=== PATIENT | female | born 1995 | race Caucasian/White ===

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

== ENCOUNTER 2017-02-25 21:27 | Inpatient (IN) | payer MEDICAID ==
[~2017-02-25] VITALS: Ht 175.3 cm; Wt 73.0 kg
[~2017-02-25 21:27] MED LIST changes: +METR1TAB76 PO
[2017-02-25 21:50] VITALS: BP 124/76; PULSE 91; RESP 18; TEMP 98.2
--- NOTE | 2017-02-25 21:54 | PD ---
HPI Chief Complaint Cramping/Contractions Date Seen: Feb 25, 2017 Travel History International Travel<30 Days: No Contact w/Intl Traveler<30Days: No History of Present Illness HPI Ms. Flynn is a 21-year-old at 36/3 weeks gestation per first trimester ultrasound presenting to the OB ED with contractions. She states that she can feel contractions every 3-5 minutes for the "last couple of hours." She states that she has been up on her feet all day walking around town prior to presenting to the OB ED. She endorses good movement and denies any vaginal bleeding, discharge, or dysuria. She does have a past medical history of asthma, but has not used her rescue inhaler once during this . Otherwise she has no complaints denies complete review of systems. Weeks Gestation: 36 Para: 1 : 2 History Past Medical History Narrative Medical Asthma Anxiety Obstetric History Obstetric History P1 - at 40 weeks, uncomplicated Past Surgical History Surgical History: No Previous Surgery Family History Family History: Negative Social History Narrative Social History Social: Denies any tobacco abuse, alcohol use, or drug use - past history of trying marijuana but none while being Allergies-Medications (Allergen,Severity, Reaction): Coded Allergies: nitrofurantoin (Unverified Allergy, Intermediate, Rash and throat felt tight, 02/25/17) cephalexin (Unverified Adverse Reaction, Mild, Nausea, vomiting, and diarrhea, 02/25/17) Home Meds Active Scripts Vit W/ Ferrous Fumara Chew (Se-Maxime 19 29-1 mg Chew) 1 Chew, 1 TAB CHEW DAILY for Nutritional Supplement, #90 EA 3 Refills Prov:Spencer Cooper MD, R2 10/06/16 Discontinued Scripts Metronidazole (Metronidazole) 500 Mg Tab, 500 MG PO BID for Infection, #14 TAB 0 Refills Prov:Spencer Cooper MD, R2 02/15/17 Review of Systems Except as stated in HPI: all other systems reviewed are Neg Physical Exam Narrative GENERAL: Well-nourished, well-developed patient in no acute distress. SKIN: Warm and dry. HEAD: Normocephalic and atraumatic. EYES: No scleral icterus. No injection or drainage. ENT: No nasal drainage noted. Mucous membranes pink. Airway patent. NECK: Supple, trachea midline. No JVD. CARDIOVASCULAR: Regular rate and rhythm without murmurs, gallops, or rubs. RESPIRATORY: Breath sounds equal bilaterally. No accessory muscle use. ABDOMEN/GI: Abdomen soft, non-tender, bowel sounds present, no rebound, no guarding Gravid to 36 GENITOURINARY: External Genitalia: intact and normal in appearance Cervix: Posterior Dilatation: 2-3cm Effacement: 50% Station: -3 Membranes: Intact Uterine Contractions: Mild, every 2-3 minutes FHT's: Category: 1 Baseline: 140s Reactive: + Variability: Moderate Decels: None EXTREMITIES: No cyanosis or edema. BACK: Nontender without obvious deformity. No CVA tenderness. NEUROLOGICAL: Awake and alert. Motor and sensory grossly within normal limits. Five out of 5 muscle strength in all muscle groups. Normal speech. Data Data Vital Signs Reviewed: Yes Orders Orders Vital Signs (Adult) .ON ADMISSION (02/25/17 21:33) ^ Labor Status (02/25/17 21:33) ^ Non Stress Test (02/25/17 21:33) ^ Hydration (02/25/17 21:33) MDM Medical Record Reviewed: Yes Plan Ms. Flynn is a 21-year-old at 36/3 weeks gestation per first trimester ultrasound presenting to the OB ED with contractions who is being admitted for possible labor. 1. IUP at 36 weeks gestation -Continue routine antepartum care -Encourage oral hydration, clear liquid diet ordered -FHT category 1, reassuring 2. Admission for possible labor -Admission orders placed -Plan to administer Steroids as patient is <36 weeks -Anticipate , will augment with Pitocin as indicated 3. GBS unknown -Rapid GBS ordered -Penicillin G ordered per protocol until GBS screen has returned 4. Asthma -Patient without use of inhaler during -Albuterol ordered PRN SDW: Dr. Clay, Dr. Farfan -Patient's PCP, Dr. Krunal Cooper, notified. Diagnosis Diagnosis: Primary Impression: 36 weeks gestation of Dave Espinal MD R2 Feb 25, 2017 21:54
[2017-02-25 22:26] LABS: BACTERIA, URINE OCC /hpf; BLOOD, URINE NEG (NEG); GLUCOSE,URINE NEG (NEG); KETONE, URINE NEG (NEG); MUCUS URINE FEW /lpf (OCC); NITRITE,URINE NEG (NEG); PH, URINE 6.5 (5.0-8.5); SQUAMOUS EPITHELIAL CELL URINE 13 /hpf (0-5); TRANSITIONAL EPI CELLS, URINE 1 /hpf; URINE COLOR LIGHT-YELLOW (YELLW/STRAW)
[2017-02-25 22:27] LABS: COMMENT (UR) CULTURE INDICATED; CULTURE IF INDICATED CULTURE INDICATED
[2017-02-25] MEDS ORDERED: LACTATED RINGER'S 1000 ML INJ 500 ML IV ONE (22:45)
[2017-02-25] MEDS ORDERED: LACTATED RINGER'S 1000 ML INJ 1,000 ML IV SCH (22:48)
[2017-02-25] MEDS ORDERED: LACTATED RINGER'S 1000 ML INJ 1,000 ML IV PRN (22:48)
[2017-02-25] MEDS ORDERED: CITRIC ACID-SODIUM CITRATE LIQ 30 ML UDC PO SCH (23:00)
[2017-02-25] MEDS ORDERED: OXYTOCIN 30 UNITS-500ML PREMIX 500 ML IV ONE (23:00)
[2017-02-25] MEDS ORDERED: ONDANSETRON HCL 4 MG/2 ML VIAL IV PUSH PRN (23:00)
[2017-02-25] MEDS ORDERED: LIDOCAINE HCL 1% 50 ML VIAL INFIL PRN (23:00)
[2017-02-25] MEDS ORDERED: SODIUM CHLORID 0.9% 500 ML INJ 500 ML IV PRN (23:00)
[2017-02-25] MEDS ORDERED: BETAMETHASONE SOD PHOS/ACETATE SUSP 30 MG/5 ML VIAL IM ONE (23:00)
[2017-02-25] MEDS ORDERED: LIDOCAINE HCL 1% 50 ML VIAL I-DERMAL PRN (23:00)
[2017-02-25] MEDS ORDERED: MINERAL OIL 10 ML VIAL TOPICAL PRN (23:00)
[2017-02-25] MEDS ORDERED: PENICILLIN G POTASSIUM INJ 5,000,000 UNITS in SODIUM CHLORIDE 0.9% INJ 100 ML IV ONE (23:00)
[2017-02-25] MEDS ORDERED: SODIUM CHLOR 0.9% 1000 ML INJ 1,000 ML IV PRN (23:08)
--- NOTE | 2017-02-25 23:56 | HHI.HP ---
History & Physical H&P HPI Chief Complaint Cramping/Contractions Date Seen: Feb 25, 2017 Travel History International Travel<30 Days: No Contact w/Intl Traveler<30Days: No History of Present Illness HPI Ms. Flynn is a 21-year-old at 36/3 weeks gestation per first trimester ultrasound presenting to the OB ED with contractions. She states that she can feel contractions every 3-5 minutes for the "last couple of hours." She states that she has been up on her feet all day walking around town prior to presenting to the OB ED. She endorses good movement and denies any vaginal bleeding, discharge, or dysuria. She does have a past medical history of asthma, but has not used her rescue inhaler once during this . Otherwise she has no complaints denies complete review of systems. Weeks Gestation: 36 Para: 1 : 2 History (Limited) History Past Medical History Narrative Medical Asthma Anxiety Obstetric History Obstetric History P1 - at 40 weeks, uncomplicated Past Surgical History Surgical History: No Previous Surgery Family History Family History: Negative Social History Narrative Social History Social: Denies any tobacco abuse, alcohol use, or drug use - past history of trying marijuana but none while being Allergies-Medications Allergies-Medications (Allergen,Severity, Reaction): Coded Allergies: nitrofurantoin (Unverified Allergy, Intermediate, Rash and throat felt tight, 02/25/17) cephalexin (Unverified Adverse Reaction, Mild, Nausea, vomiting, and diarrhea, 02/25/17) Home Meds Active Scripts Vit W/ Ferrous Fumara Chew (Se-Maxime 19 29-1 mg Chew) 1 Chew, 1 TAB CHEW DAILY for Nutritional Supplement, #90 EA 3 Refills Prov:Spencer Cooper MD, R2 10/06/16 Discontinued Scripts Metronidazole (Metronidazole) 500 Mg Tab, 500 MG PO BID for Infection, #14 TAB 0 Refills Prov:Spencer Cooper MD, R2 02/15/17 ROS Review of Systems Except as stated in HPI: all other systems reviewed are Neg Physical Exam Physical Exam Narrative GENERAL: Well-nourished, well-developed patient in no acute distress. SKIN: Warm and dry. HEAD: Normocephalic and atraumatic. EYES: No scleral icterus. No injection or drainage. ENT: No nasal drainage noted. Mucous membranes pink. Airway patent. NECK: Supple, trachea midline. No JVD. CARDIOVASCULAR: Regular rate and rhythm without murmurs, gallops, or rubs. RESPIRATORY: Breath sounds equal bilaterally. No accessory muscle use. ABDOMEN/GI: Abdomen soft, non-tender, bowel sounds present, no rebound, no guarding Gravid to 36 GENITOURINARY: External Genitalia: intact and normal in appearance Cervix: Posterior Dilatation: 2-3cm Effacement: 50% Station: -3 Membranes: Intact Uterine Contractions: Mild, every 2-3 minutes FHT's: Category: 1 Baseline: 140s Reactive: + Variability: Moderate Decels: None EXTREMITIES: No cyanosis or edema. BACK: Nontender without obvious deformity. No CVA tenderness. NEUROLOGICAL: Awake and alert. Motor and sensory grossly within normal limits. Five out of 5 muscle strength in all muscle groups. Normal speech. Data Data Data Vital Signs Reviewed: Yes Orders Orders Vital Signs (Adult) .ON ADMISSION (02/25/17 21:33) ^ Labor Status (02/25/17 21:33) ^ Non Stress Test (02/25/17 21:33) ^ Hydration (02/25/17 21:33) MDM MDM Medical Record Reviewed: Yes Plan Ms. Flynn is a 21-year-old at 36/3 weeks gestation per first trimester ultrasound presenting to the OB ED with contractions who is being admitted for possible labor. 1. IUP at 36 weeks gestation -Continue routine antepartum care -Encourage oral hydration, clear liquid diet ordered -FHT category 1, reassuring 2. Admission for possible labor -Admission orders placed -Plan to administer Steroids as patient is <36 weeks -Anticipate , will augment with Pitocin as indicated 3. GBS unknown -Rapid GBS ordered -Penicillin G ordered per protocol until GBS screen has returned 4. Asthma -Patient without use of inhaler during -Albuterol ordered PRN SDW: Dr. Adolph Headley -Patient's PCP, Dr. Krunal Cooper, notified. Dave Espinal MD R2 Feb 25, 2017 23:56
[2017-02-26] VITALS (7 sets, daily range): BP systolic 96–106; BP diastolic 47–58; PULSE 80–84; RESP 16–20; TEMP 98.4–98.7
[2017-02-26 00:35] LABS: AUTOMATED NEUTROPHIL # 6.4 TH/MM3 (1.8-7.7); BASOPHIL % 0.2 % (0.0-2.0); EOSINOPHIL # 0.2 TH/MM3 (0-0.4); EOSINOPHIL % 2.1 % (0.0-4.0); HEMATOCRIT 34.8 % (35.0-46.0); HEMO FLAGS DIFF FINAL; LYMPH % 27.1 % (9.0-44.0); LYMPHOCYTE # 2.8 TH/MM3 (1.0-4.8); MEAN CELL VOLUME 82.3 FL (80.0-100.0); MEAN CORPUSCULAR HEMOGLOBIN 27.9 PG (27.0-34.0); MEAN CORPUSCULAR HGB CONC 33.9 % (32.0-36.0); MONO % 7.9 % (0.0-8.0); NEUT % 62.7 % (16.0-70.0); PLATELET COUNT 136 TH/MM3 (150-450); RED BLOOD COUNT 4.23 MIL/MM3 (4.00-5.30); RED CELL DISTRIBUTION WIDTH 13.2 % (11.6-17.2); WHITE BLOOD COUNT 10.2 TH/MM3 (4.0-11.0)
[2017-02-26] MEDS ORDERED: PENICILLIN G POTASSIUM INJ 2,500,000 UNITS in SODIUM CHLORIDE 0.9% INJ 100 ML IV SCH (03:00)
--- NOTE | 2017-02-26 04:24 | PD.LABORPN ---
Subjective Subjective Patient seen and examined by OB team. Patient resting comfortably sleeping upon entering the room. She has no current complaints. She endorses activity and denies any loss of fluid, dysuria, vaginal bleeding, or vaginal discharge. Objective Vital Signs Vital Signs Date Time Temp Pulse Resp B/P (MAP) Pulse Ox O2 Delivery O2 Flow Rate FiO2 02/26/17 03:00 98.4 02/26/17 03:00 18 02/26/17 01:15 20 02/26/17 01:03 84 96/47 (63) 02/25/17 21:50 98.2 91 18 124/76 (92) Objective Pelvic Exam: Cervix: Mid position Dilatation: 4 cm Effacement: 60% Station: -3 Presentation: Vertex Membranes: Intact FHT's: Category: 1 Baseline: 120s Reactive: + Variability: Moderate Decels: None Weeks Gestation: 36 Gest Age Assessed Date: Feb 26, 2017 Gest Age Assessed Time: 04:19 Pt started active labor?: No Medical induction of labor?: No Artificial rupture of membrane: No Assessment/Plan Problem List: (1) 36 weeks gestation of ICD Codes: Z3A.36 - 36 weeks gestation of Status: Acute Assessment and Plan Ms. Flynn is a 21-year-old at 36/3 weeks gestation per first trimester ultrasound presenting to the OB ED with contractions who is being admitted for possible labor. 1. IUP at 36 weeks gestation -Continue routine antepartum care -Encourage oral hydration, clear liquid diet ordered -FHT category 1, reassuring -Contractions have lessened in quality and severity since admission -Cervical exam unchanged -OB team plans to reevaluate in approximately 2 hours for cervical change -If cervix remains unchanged, patient to be discharged home with continued antepartum care SDW: Dr. Clay, Dave Desai MD R2 Feb 26, 2017 04:24
--- NOTE | 2017-02-26 06:18 | HHI.DCPOC ---
Discharge Care Plan Diagnosis: (1) 36 weeks gestation of (2) labor in third trimester (3) UTI (urinary tract infection) Report Symptoms to Your Doctor -Temperature above 100.5 degrees -Redness, of incision or excessive or foul smelling drainage -Unusual pain or calf pain -Increased vaginal bleeding -Painful or difficulty urinating -Feelings of extreme sadness or anxiety after 2 weeks Goals to Promote Your Health * To prevent worsening of your condition and complications * To maintain your health at the optimal level Directions to Meet Your Goals Take your medications as prescribed Follow your dietary instruction Follow activity as directed Ensure plenty of rest for recovery Drink fluids for hydration Keep your appointments as scheduled Take your immunizations and boosters as scheduled If your symptoms worsen call your PCP, if no PCP go to Urgent Care Center or Emergency Room Smoking is Dangerous to Your Health. Avoid second hand smoke Call the 24-hour crisis hotline for domestic abuse at Mejia Clay MD Feb 26, 2017 06:18
--- NOTE | 2017-02-26 06:19 | PD.LABORPN ---
Subjective Subjective Patient seen and examined by OB team. Patient resting comfortably sleeping upon entering the room. She has no current complaints. She endorses activity and denies any loss of fluid, dysuria, vaginal bleeding, or vaginal discharge. Objective Vital Signs Vital Signs Date Time Temp Pulse Resp B/P (MAP) Pulse Ox O2 Delivery O2 Flow Rate FiO2 02/26/17 06:03 16 02/26/17 04:00 18 02/26/17 03:00 98.4 02/26/17 03:00 18 02/26/17 01:15 20 02/26/17 01:03 84 96/47 (63) Objective Pelvic Exam: Cervix: Midposition Dilatation: 4 cm Effacement: 60% Station: -3 Presentation: Vertex Membranes: Intact FHT's: Category: 1 Baseline: 120s Reactive: + Variability: Moderate Decels: None Weeks Gestation: 36 Gest Age Assessed Date: Feb 26, 2017 Gest Age Assessed Time: 04:19 Pt started active labor?: No Medical induction of labor?: No Artificial rupture of membrane: No Assessment/Plan Problem List: (1) 36 weeks gestation of ICD Codes: Z3A.36 - 36 weeks gestation of Status: Acute Assessment and Plan Ms. Flynn is a 21-year-old at 36/3 weeks gestation per first trimester ultrasound presenting to the OB ED with contractions who is being admitted for possible labor. 1. IUP at 36 weeks gestation -Continue routine antepartum care -Encourage oral hydration, clear liquid diet ordered -FHT category 1, reassuring -Contractions have lessened in quality and severity since admission -Cervical exam unchanged -Patient to be discharged home with routine OB care -Labor precautions discussed 2. UTI -Patient prescribed Amoxicillin 250mg TID for 5 days -Urine culture pending, followed up as outpatient SDW: Dr. Clay OB team to contact PCP, Dave Kapadia MD R2 Feb 26, 2017 06:18
[2017-02-26] MEDS ORDERED: AMOX250C3 PO (06:29)
[2017-03-15] MEDS ORDERED: METR1TAB76 PO (12:04)
== END 2017-02-26 06:38 | disposition home or self-care (01) | DRG 774 ==
LOC: HOBED 21:27 → H2EA 22:53
PROVIDERS: ADMIT Obstetrics & Gynecology; ATTEND Obstetrics & Gynecology
DX: O60.14X0 Preterm labor third trimester with preterm delivery third trimester, not applicable or unspecified (principal); O75.3 Other infection during labor; O23.43 Unspecified infection of urinary tract in pregnancy, third trimester; Z3A.36 36 weeks gestation of pregnancy; J45.909 Unspecified asthma, uncomplicated; O99.513 Diseases of the respiratory system complicating pregnancy, third trimester
CPT/HCPCS: 80307; 81001; 85025; 87086; 99285; J0702; J7120

== ENCOUNTER 2017-03-22 18:39 | Inpatient (IN) | payer MEDICAID ==
[2017-03-22] VITALS (15 sets, daily range): BP systolic 106–140; BP diastolic 63–85; PULSE 73–120; RESP 18; TEMP 98.2; O2SAT 100
[~2017-03-22] VITALS: Ht 175.3 cm; Wt 73.0 kg
[2017-03-22] MEDS ORDERED: LIDOCAINE HCL 1% 50 ML VIAL I-DERMAL PRN (19:45)
[2017-03-22] MEDS ORDERED: MINERAL OIL 10 ML VIAL TOPICAL PRN (19:45)
[2017-03-22] MEDS ORDERED: CITRIC ACID-SODIUM CITRATE LIQ 30 ML UDC PO SCH (19:45)
[2017-03-22] MEDS ORDERED: SODIUM CHLORID 0.9% 500 ML INJ 500 ML IV PRN (19:45)
[2017-03-22] MEDS ORDERED: LIDOCAINE HCL 1% 50 ML VIAL INFIL PRN (19:45)
[2017-03-22] MEDS ORDERED: LACTATED RINGER'S 1000 ML INJ 1,000 ML IV PRN (19:45)
--- NOTE | 2017-03-22 19:45 | HHI.HP ---
History & Physical H&P HPI Chief Complaint labor Date Seen: Mar 22, 2017 Time Seen: 19:37 Travel History International Travel<30 Days: No Contact w/Intl Traveler<30Days: No Known Affected Area: No History of Present Illness HPI 21 at 40.0 presents with complaint of frequent contractions. GBS negative. Denies vaginal bleeding or loss of fluid. Endorses good movement. No fever, chills, n/v/d. Weeks Gestation: 40 Para: 1 : 2 History (Limited) History Past Medical History Narrative Medical Asthma Anxiety Past Surgical History Surgical History: No Previous Surgery Family History Family History: Negative Social History Alcohol Use: No Tobacco Use: No Substance Abuse: No Allergies-Medications Allergies-Medications (Allergen,Severity, Reaction): Coded Allergies: nitrofurantoin (Unverified Allergy, Intermediate, Rash and throat felt tight, 03/22/17) cephalexin (Unverified Adverse Reaction, Mild, Nausea, vomiting, and diarrhea, 03/22/17) Home Meds Active Scripts Vit W/ Ferrous Fumara Chew (Se- -1 mg Chew) 1 Chew, 1 TAB CHEW DAILY for Nutritional Supplement, #90 EA 3 Refills Prov:Spencer Cooper MD, R2 10/06/16 Discontinued Scripts Metronidazole (Metronidazole) 500 Mg Tab, 500 MG PO BID for Infection, #14 TAB 0 Refills Prov:Spencer Cooper MD, R2 03/15/17 ROS Review of Systems Physical Exam Physical Exam Narrative GENERAL: Well-nourished, well-developed patient. SKIN: Warm and dry. HEAD: Normocephalic and atraumatic. EYES: No scleral icterus. No injection or drainage. ENT: No nasal drainage noted. Mucous membranes pink. Airway patent. NECK: Supple, trachea midline. No JVD. CARDIOVASCULAR: Regular rate and rhythm without murmurs, gallops, or rubs. RESPIRATORY: Breath sounds equal bilaterally. No accessory muscle use. ABDOMEN/GI: Abdomen soft, non-tender, bowel sounds present, no rebound, no guarding Gravid to 40 weeks size GENITOURINARY: Dilatation: 6 Effacement: 80 Membranes: intact Uterine Contractions:q2-3 minutes FHT's: Category: 1 Baseline: 135 Reactive: yes Variability: moderate Decels: none EXTREMITIES: No cyanosis or edema. BACK: Nontender without obvious deformity. No CVA tenderness. NEUROLOGICAL: Awake and alert. Motor and sensory grossly within normal limits. Five out of 5 muscle strength in all muscle groups. Normal speech. Data Data Data Vital Signs Reviewed: Yes Orders Orders Ob (2e) Additional Admit Info (03/22/17 19:27) Admit To Inpatient (03/22/17 ) Code Status (03/22/17 19:35) Vital Signs (Adult) .Per protocol (03/22/17 19:35) Activity Oob Ad Lexie (03/22/17 19:35) Heart (03/22/17 19:35) Amnioinfusion (03/22/17 19:35) Urinary Catheter Management .ONCE (03/22/17 19:35) Diet Liquid (03/23/17 Breakfast) Lactated Ringer's 1000 Ml Inj (Lr 1000 M (03/22/17 19:35) Lactated Ringer's 1000 Ml Inj (Lr 1000 M (03/22/17 19:35) Sodium Chlorid 0.9% 500 Ml Inj (Ns 500 M (03/22/17 19:45) Sodium Chlor 0.9% 1000 Ml Inj (Ns 1000 M (03/22/17 19:55) Lidocaine 1% Inj (50 Ml) (Xylocaine 1% I (03/22/17 19:45) Citric Acid-Sodium Citrate Liq (Bicitra (03/22/17 19:45) Fentanyl Inj (Fentanyl Inj) (03/22/17 19:45) Fentanyl Inj (Fentanyl Inj) (03/22/17 19:45) Complete Blood Count With Diff (03/22/17 19:35) Hold Clot (03/22/17 19:35) Abo/Rh Blood Type (03/22/17 19:35) Urinalysis - C+S If Indicated (03/22/17 19:35) Drug Screen, Random Urine (03/22/17 19:35) Resp Oxygen Non Rebreathe Mask (03/22/17 ) ^ Epidural / Intrathecal Infus (03/22/17 19:35) Oxytocin 30 Units-500ml Premix (Pitocin (03/22/17 19:45) Lidocaine 1% Inj (50 Ml) (Xylocaine 1% I (03/22/17 19:45) Light Mineral Oil (Muri-Lube Oil) (03/22/17 19:45) Inpatient Certification (03/22/17 ) Specimen To Be Collected PRN (03/22/17 19:35) Specimen To Be Collected PRN (03/22/17 19:35) Group B Strep: Negative MDM MDM Medical Record Reviewed: Yes Narrative Course / MDM 21 at 40.0 presents in labor 1.) IUP Category 1 tracing Continue to monitor 2.) Labor GBS negative Dilated to [address] Dudley and Dr. Cooper Consider ROM with progression Epidural now Del Patel MD, R3 Mar 22, 2017 19:45
[2017-03-22] MEDS ORDERED: SODIUM CHLOR 0.9% 1000 ML INJ 1,000 ML IV PRN (19:55)
[2017-03-22] MEDS ORDERED: OXYTOCIN 30 UNITS-500ML PREMIX 500 ML IV ONE (20:00)
[2017-03-22] MEDS ORDERED: LIDOCAINE HCL 1% 50 ML VIAL ONE (20:09)
[2017-03-22] MEDS: LACTATED RINGER'S 1000 ML INJ 1,000 ML IV SCH ×2 (20:19→21:27)
[2017-03-22] MEDS ORDERED: fentaNYL 2MCG-BUPIV 0.125% INJ 100 ML ONE (20:22)
[2017-03-22] MEDS ORDERED: ePHEDrine/NS 25 MG/5 ML SYR ONE (20:22)
[2017-03-22 21:06] LABS: AUTOMATED NEUTROPHIL # 6.5 TH/MM3 (1.8-7.7); BASOPHIL % 0.2 % (0.0-2.0); EOSINOPHIL % 0.4 % (0.0-4.0); HEMATOCRIT 34.6 % (35.0-46.0); HEMO FLAGS DIFF FINAL; LYMPHOCYTE # 2.5 TH/MM3 (1.0-4.8); MEAN CELL VOLUME 80.4 FL (80.0-100.0); MEAN CORPUSCULAR HEMOGLOBIN 26.1 PG (27.0-34.0); MEAN CORPUSCULAR HGB CONC 32.4 % (32.0-36.0); MONO % 9.1 % (0.0-8.0); NEUT % 65.3 % (16.0-70.0); PLATELET COUNT 160 TH/MM3 (150-450); RED BLOOD COUNT 4.31 MIL/MM3 (4.00-5.30); RED CELL DISTRIBUTION WIDTH 14.2 % (11.6-17.2); WHITE BLOOD COUNT 9.9 TH/MM3 (4.0-11.0)
[2017-03-22 21:38] LABS: BACTERIA, URINE RARE /hpf; BLOOD, URINE NEG (NEG); COMMENT (UR) CULT NOT INDICATED; CULTURE IF INDICATED CULT NOT INDICATED; GLUCOSE,URINE NEG (NEG); KETONE, URINE NEG (NEG); NITRITE,URINE NEG (NEG); SQUAMOUS EPITHELIAL CELL URINE 9 /hpf (0-5); URINE COLOR LIGHT-YELLOW (YELLW/STRAW)
--- NOTE | 2017-03-22 21:53 | PD.LABORPN ---
Subjective Subjective Epidural placed without issue. Patient doing well. Rupturing membranes now. Objective Vital Signs Vital Signs Date Time Temp Pulse Resp B/P (MAP) Pulse Ox O2 Delivery O2 Flow Rate FiO2 03/22/17 21:35 104 100 03/22/17 21:30 120 03/22/17 21:30 100 03/22/17 21:30 99 116/72 (87) 03/22/17 21:25 100 03/22/17 21:25 89 03/22/17 21:25 97 132/76 (94) 03/22/17 21:20 97 140/72 (94) 03/22/17 21:20 98 03/22/17 21:20 100 03/22/17 21:16 98 134/82 (99) 03/22/17 21:15 100 03/22/17 21:15 100 03/22/17 21:12 96 140/78 (98) Objective Pelvic Exam: Dilatation:6 Effacement:80 Presentation:vertex Membranes: ruptured Moderate meconium FHT's: Category: 1 Weeks Gestation: 40 Assessment/Plan Problem List: (1) Normal labor ICD Codes: O80 - Encounter for full-term uncomplicated delivery; Z37.9 - Outcome of delivery, unspecified Status: Acute Plan: AROM- meconium stained fluid Epidural placed Cat 1 tracing Continue labor DW. Dr. Dudley and Del Davis MD, R3 Mar 22, 2017 21:53
[2017-03-22] MEDS ORDERED: fentaNYL 2MCG-BUPIV 0.125% 100 ML EPIDURAL SCH (22:15)
[2017-03-22] MEDS ORDERED: NO SYSTEM NARCOTICS PRN (22:15)
[2017-03-22] MEDS ORDERED: DO NOT ADMINISTER ANTICOAGULANTS PRN (22:15)
[2017-03-22] MEDS ORDERED: ePHEDrine/NS 25 MG/5 ML SYR IV PUSH PRN (22:15)
[2017-03-23] VITALS (11 sets, daily range): BP systolic 102–133; BP diastolic 64–98; PULSE 77–106; RESP 16–20; TEMP 97.8–98.2
--- NOTE | 2017-03-23 00:51 | PD.OB.DELI ---
Weeks gestation: 40 Gest age assessed date: Mar 23, 2017 Pt started active labor?: Yes Active labor start date: Mar 22, 2017 Active labor start time: 19:27 Artificial rupture of membrane: Yes Artificial ROM date: Mar 22, 2017 Artifical ROM time: 21:47 Anesthesia: Epidural Episiotomy: None Vaginal Delivery: Normal Presentation: Occiput anterior Nuchal Cord: None Delayed cord clamping (45 sec): Yes : Female Delivery date: Mar 23, 2017 Delivery time: 00:20 One Minute : 7 Five Minute : 9 Weight: 8'11" Placenta: Spontaneous delivery, Intact, 3 vessel cord Laceration: Perineal laceration, 2 deg Repair: Chromic running Estimated blood loss: 300cc Additional Information Spontaneous vaginal delivery. Placenta delivered intact. 2nd degree perineal laceration repaired and button-hole labial tear repaired. Assisted by Dr. Luis Enrique Cooper,Spencer Cedeño MD, R2 Mar 23, 2017 00:51
[2017-03-23] MEDS ORDERED: ONDANSETRON ODT 4 MG TAB PO PRN (01:00)
[2017-03-23] MEDS ORDERED: BENZOCAINE 20% TOPICAL SPRAY 60 ML CAN TOPICAL PRN (01:00)
[2017-03-23] MEDS ORDERED: OXYTOCIN 30 UNITS-500ML PREMIX 500 ML IV SCH (01:00)
[2017-03-23] MEDS ORDERED: ZOLPIDEM TARTRATE 5 MG TAB PO PRN (01:00)
[2017-03-23] MEDS ORDERED: oxyCODONE/ACETAMINOPHEN 5 MG/325 MG TAB PO PRN ×2 (01:00)
[2017-03-23] MEDS ORDERED: SODIUM CHLORIDE 0.9% FLUSH 10 ML FLUSH IV FLUSH PRN (01:00)
[2017-03-23] MEDS ORDERED: ALUMINUM/MAGNESIUM/SIMETH 30 ML CUP PO PRN (01:00)
[2017-03-23] MEDS ORDERED: WITCH HAZEL 50%/GLYCERIN 12.5% 40 PAD JAR TOPICAL PRN (01:00)
[2017-03-23] MEDS ORDERED: ACETAMINOPHEN 325 MG TAB PO PRN (01:00)
[2017-03-23] MEDS ORDERED: DOCUSATE SODIUM 50 MG/SENNA 8.6 MG TAB PO PRN (01:00)
[2017-03-23] MEDS: IBUPROFEN 800 MG TAB PO PRN ×2 (03:44→12:33)
--- NOTE | 2017-03-23 07:56 | HHI.OB ---
Subjective Post Day: 0 Remarks day #0. AFVSS overnight. Pain minimal. Decreased lochia. Denies dysuria. No breast tenderness. She is feeding the baby via breast. Appetite good. No nausea or vomiting. Endorses flatus. No bowel movement. Ambulating well. Denies calf pain, shortness of breath, or cough. Otherwise, she is doing well this morning and has no other complaints. Objective Vitals/I&O Vital Signs Date Time Temp Pulse Resp B/P (MAP) Pulse Ox O2 Delivery O2 Flow Rate FiO2 03/23/17 03:50 97.9 16 03/23/17 03:50 91 115/66 (82) 03/23/17 01:36 98.2 18 03/23/17 01:30 79 117/76 (90) 03/23/17 01:15 89 125/82 (96) 03/23/17 01:02 18 03/23/17 01:01 77 125/70 (88) 03/23/17 00:45 18 03/23/17 00:45 97 107/92 (97) 03/23/17 00:30 80 127/98 (108) 03/23/17 00:00 106 133/73 (93) 03/22/17 23:30 91 125/75 (92) 03/22/17 23:00 97 121/67 (85) 03/22/17 22:40 98.2 18 03/22/17 22:30 99 123/79 (94) 03/22/17 22:15 101 119/75 (90) 03/22/17 22:09 73 106/85 (92) 03/22/17 22:04 83 106/63 (77) 03/22/17 22:01 103 03/22/17 21:35 104 100 03/22/17 21:30 120 03/22/17 21:30 100 03/22/17 21:30 99 116/72 (87) 03/22/17 21:25 100 03/22/17 21:25 89 03/22/17 21:25 97 132/76 (94) 03/22/17 21:20 97 140/72 (94) 03/22/17 21:20 98 03/22/17 21:20 100 03/22/17 21:16 98 134/82 (99) 03/22/17 21:15 100 03/22/17 21:15 100 03/22/17 21:12 96 140/78 (98) Objective Remarks GENERAL: Well-nourished, well-developed patient. CARDIOVASCULAR: Regular rate and rhythm without murmurs, gallops, or rubs. RESPIRATORY: Breath sounds equal bilaterally. No accessory muscle use. ABDOMEN/GI: Abdomen soft, non-tender. Fundus: Firm, non-tender at umbilicus. GENITOURINARY: Light to moderate bleeding. EXTREMITIES: No cyanosis or edema, non-tender, without signs of DVT. Medications and IVs Current Medications Medications (Trade) Dose Ordered Sig/Godwin Route Start Time Stop Time Status Last Admin Lactated Ringer's 1,000 ml @ 125 mls/hr Q8H IV 03/22/17 19:45 03/22/17 21:27 Lactated Ringer's 1,000 ml @ 3,000 mls/hr Q20M PRN IV 03/22/17 19:45 Sodium Chloride 500 ml @ 1,000 mls/hr ONCE PRN IV 03/22/17 19:45 03/23/17 19:44 Sodium Chloride 1,000 ml @ 100 mls/hr Q10H PRN IV 03/22/17 19:55 (Xylocaine 1% Inj (50 ml)) 0.1 ml UNSCH X1 PRN I-DERMAL 03/22/17 19:45 03/25/17 19:44 03/22/17 20:14 (Bicitra Liq) 30 ml OUTSOLE ROUNDER PO 03/22/17 19:45 03/26/17 19:44 (fentaNYL INJ) 50 mcg Q1H PRN IV PUSH 03/22/17 19:45 (fentaNYL INJ) 100 mcg Q1H PRN IV PUSH 03/22/17 19:45 (Xylocaine 1% Inj (50 ml)) 10 ml UNSCH X1 PRN INFIL 03/22/17 19:45 03/24/17 19:44 (Muri-Lube Oil) 10 ml UNSCH PRN TOPICAL 03/22/17 19:45 Miscellaneous Information No systemic narcotics to be given except... UNSCH PRN .XX 03/22/17 22:15 03/23/17 22:14 Miscellaneous Information DO NOT ADMINISTER ANY ANTICOAGUL... UNSCH PRN .XX 03/22/17 22:15 03/23/17 22:14 Fentanyl/ Bupivacaine HCl 100 ml @ 0 mls/hr TITRATE EPIDURAL 03/22/17 22:15 03/22/17 22:17 (ePHEDrine/NS 25 MG/5 ML SYR) 10 mg UNSCH PRN IV PUSH 03/22/17 22:15 03/23/17 22:14 03/22/17 22:05 (NS Flush) 2 ml BID IV FLUSH 03/23/17 09:00 (NS Flush) 2 ml UNSCH PRN IV FLUSH 03/23/17 01:00 03/23/17 02:56 (Tylenol) 650 mg Q4H PRN PO 03/23/17 01:00 (Motrin) 800 mg Q8H PRN PO 03/23/17 01:00 03/23/17 03:44 (Percocet 5-325 Mg) 1 tab Q4H PRN PO 03/23/17 01:00 (Percocet 5-325 Mg) 2 tab Q4H PRN PO 03/23/17 01:00 (Americaine 20% Top Spr) 1 spray Q4H PRN TOPICAL 03/23/17 01:00 (Tucks Pads) 1 applic QID PRN TOPICAL 03/23/17 01:00 (Dejah-Colace) 2 tab Q12H PRN PO 03/23/17 01:00 (Ambien) 5 mg HS PRN PO 03/23/17 01:00 (M-M-R Ii Inj) 0.5 ml ONCE ONCE SQ 03/23/17 16:00 03/23/17 16:01 (Boostrix Inj) 0.5 ml ONCE ONCE IM 03/23/17 16:00 03/23/17 16:01 (Mag-Al Plus Susp Liq) 15 ml Q8H PRN PO 03/23/17 01:00 (Zofran Odt) 4 mg Q6H PRN PO 03/23/17 01:00 Assessment/Plan Problem List: (1) care following vaginal delivery ICD Codes: Z39.2 - Encounter for routine follow-up Assessment and Plan 21y/o who is PPD#0 s/p . -Continue routine care. -Percocet and Motrin PRN pain. -Encouraged OOB. Advised pelvic rest for 6 wks. -Will need a f/u appt. within 6 wks. -Re: ctrl, she would like depo shot -D/c in 1-[address] Luis Enrique Cooper,Spencer Cedeño MD, R2 Mar 23, 2017 07:56
[2017-03-23] MEDS ORDERED: IBUP1TAB7 PO (08:23)
[2017-03-23] MEDS ORDERED: PERI PO (08:23)
[2017-03-23] MEDS ORDERED: SODIUM CHLORIDE 0.9% FLUSH 10 ML FLUSH IV FLUSH SCH (09:00)
[2017-03-23] MEDS: LACTATED RINGER'S 1000 ML INJ 1,000 ML IV SCH (11:45)
[2017-03-23] MEDS ORDERED: MEASLES, MUMPS, RUBELLA VACCINE 0.5 ML VIAL SQ ONE (16:00)
[2017-03-23] MEDS ORDERED: DIPHTH/TETANUS/ACEL PERTUSSIS (BOOSTER) 0.5 ML VIAL/PFS IM ONE (16:00)
[2017-03-24] MEDS: IBUPROFEN 800 MG TAB PO PRN ×2 (04:14→17:19)
[2017-03-24 08:00] VITALS: BP 108/72; PULSE 87; RESP 18; TEMP 97.9; O2SAT 100
[2017-03-24] MEDS ORDERED: medroxyPROGESTERone ACETATE SUSP 150 MG/ML SYRINGE IM ONE ×2 (08:00→17:30)
--- NOTE | 2017-03-24 08:41 | HHI.OB ---
Subjective Post Day: 1 Remarks day #0. AFVSS overnight. Pain minimal. Decreased lochia. Denies dysuria. No breast tenderness. She is feeding the baby via breast. Appetite good. No nausea or vomiting. Endorses flatus. No bowel movement. Ambulating well. Denies calf pain, shortness of breath, or cough. Otherwise, she is doing well this morning and has no other complaints. Objective Vitals/I&O Vital Signs Date Time Temp Pulse Resp B/P (MAP) Pulse Ox O2 Delivery O2 Flow Rate FiO2 03/23/17 20:10 88 20 111/67 (82) 03/23/17 20:10 98.2 Objective Remarks GENERAL: Well-nourished, well-developed patient. CARDIOVASCULAR: Regular rate and rhythm without murmurs, gallops, or rubs. RESPIRATORY: Breath sounds equal bilaterally. No accessory muscle use. ABDOMEN/GI: Abdomen soft, non-tender. Fundus: Firm, non-tender below umbilicus. GENITOURINARY: Light to moderate bleeding. EXTREMITIES: No cyanosis or edema, non-tender, without signs of DVT. Medications and IVs Current Medications Medications (Trade) Dose Ordered Sig/Godwin Route Start Time Stop Time Status Last Admin Lactated Ringer's 1,000 ml @ 125 mls/hr Q8H IV 03/22/17 19:45 03/22/17 21:27 Lactated Ringer's 1,000 ml @ 3,000 mls/hr Q20M PRN IV 03/22/17 19:45 Sodium Chloride 1,000 ml @ 100 mls/hr Q10H PRN IV 03/22/17 19:55 (Xylocaine 1% Inj (50 ml)) 0.1 ml UNSCH X1 PRN I-DERMAL 03/22/17 19:45 03/25/17 19:44 03/22/17 20:14 (Bicitra Liq) 30 ml DRYWALL MECHANIC PO 03/22/17 19:45 03/26/17 19:44 (fentaNYL INJ) 50 mcg Q1H PRN IV PUSH 03/22/17 19:45 (fentaNYL INJ) 100 mcg Q1H PRN IV PUSH 03/22/17 19:45 (Xylocaine 1% Inj (50 ml)) 10 ml UNSCH X1 PRN INFIL 03/22/17 19:45 03/24/17 19:44 (Muri-Lube Oil) 10 ml UNSCH PRN TOPICAL 03/22/17 19:45 Fentanyl/ Bupivacaine HCl 100 ml @ 0 mls/hr TITRATE EPIDURAL 03/22/17 22:15 03/22/17 22:17 (NS Flush) 2 ml BID IV FLUSH 03/23/17 09:00 (NS Flush) 2 ml UNSCH PRN IV FLUSH 03/23/17 01:00 03/23/17 02:56 (Tylenol) 650 mg Q4H PRN PO 03/23/17 01:00 (Motrin) 800 mg Q8H PRN PO 03/23/17 01:00 03/24/17 04:14 (Percocet 5-325 Mg) 1 tab Q4H PRN PO 03/23/17 01:00 (Percocet 5-325 Mg) 2 tab Q4H PRN PO 03/23/17 01:00 (Americaine 20% Top Spr) 1 spray Q4H PRN TOPICAL 03/23/17 01:00 03/23/17 20:15 (Tucks Pads) 1 applic QID PRN TOPICAL 03/23/17 01:00 03/23/17 20:16 (Dejah-Colace) 2 tab Q12H PRN PO 03/23/17 01:00 (Ambien) 5 mg HS PRN PO 03/23/17 01:00 (Mag-Al Plus Susp Liq) 15 ml Q8H PRN PO 03/23/17 01:00 (Zofran Odt) 4 mg Q6H PRN PO 03/23/17 01:00 Assessment/Plan Problem List: (1) care following vaginal delivery ICD Codes: Z39.2 - Encounter for routine follow-up Assessment and Plan 21y/o who is PPD#1 s/p . -Continue routine care. -Percocet and Motrin PRN pain. -Encouraged OOB. Advised pelvic rest for 6 wks. -Will need a f/u appt. within 6 wks. -Re: ctrl, she would like depo shot -D/c today or tomorrow dw Dr. Ana Maria Connelly,Joanne Barillas MD R2 Mar 24, 2017 08:40
[2017-03-24] MEDS: LACTATED RINGER'S 1000 ML INJ 1,000 ML IV SCH (09:59)
--- NOTE | 2017-03-24 15:36 | HHI.DCPOC ---
Discharge Care Plan Report Symptoms to Your Doctor -Temperature above 100.5 degrees -Redness, of incision or excessive or foul smelling drainage -Unusual pain or calf pain -Increased vaginal bleeding -Painful or difficulty urinating -Feelings of extreme sadness or anxiety after 2 weeks Goals to Promote Your Health * To prevent worsening of your condition and complications, please take your medications as prescribed. Please take showers (not baths) for the next 2-[address] nothing in your vagina for the next six weeks (that includes no sexual intercourse). * To maintain your health at the optimal level, please follow up with your OB/ COMPLETION MANAGER or Family doctor in 6 weeks. Directions to Meet Your Goals Take your medications as prescribed Follow your dietary instruction Follow activity as directed Ensure plenty of rest for recovery Drink fluids for hydration Keep your appointments as scheduled Take your immunizations and boosters as scheduled If your symptoms worsen call your PCP, if no PCP go to Urgent Care Center or Emergency Room Smoking is Dangerous to Your Health. Avoid second hand smoke Call the 24-hour crisis hotline for domestic abuse at James Goldstein MD R1 Mar 24, 2017 15:36 Cornell Carbone MD Mar 24, 2017 16:29
== END 2017-03-24 17:42 | disposition home or self-care (01) | DRG 775 ==
LOC: HOBED 18:39 → H2EA 19:27 → H1EA 03-23 03:25
PROVIDERS: ADMIT Obstetrics & Gynecology Maternal & Fetal Medicine; ATTEND Obstetrics & Gynecology Maternal & Fetal Medicine
PROC: 10907ZC Drainage of Amniotic Fluid, Therapeutic from Products of Conception, Via Natural or Artificial Opening (ICD-10-PCS; 2017-03-22)
PROC: 10E0XZZ Delivery of Products of Conception, External Approach (ICD-10-PCS; principal; 2017-03-23)
PROC: 0KQM0ZZ Repair Perineum Muscle, Open Approach (ICD-10-PCS; 2017-03-23)
DX: O77.0 Labor and delivery complicated by meconium in amniotic fluid (principal); J45.909 Unspecified asthma, uncomplicated; O70.1 Second degree perineal laceration during delivery; O99.52 Diseases of the respiratory system complicating childbirth; Z3A.40 40 weeks gestation of pregnancy; Z37.0 Single live birth
CPT/HCPCS: 80307; 81001; 85025; 86900; 86901; 90715; J2590; J7120